=== PATIENT | male | born 1950 | race Caucasian/White ===

== ENCOUNTER → 2019-03-17 | Outpatient (CLI) | payer MEDICARE ==
--- NOTE | 2019-03-17 14:12 | XR ---
EXAMINATION TYPE: XR chest 2V DATE OF EXAM: 03/17/2019 COMPARISON: NONE HISTORY: Cough and shortness of breath for 2 months TECHNIQUE: Frontal and lateral views of the chest are obtained. FINDINGS: There is no focal air space opacity, pleural effusion, or pneumothorax seen. Pulmonary hy perinflation and flattening the diaphragms is seen with biapical lucency representing underlying COPD . There are some 4 mm nodular densities in the right lower lobe, right upper lobe and overlying the l eft hemidiaphragm on the lateral view. The cardiac silhouette size is within normal limits. The oss eous structures are intact. IMPRESSION: 1. No acute cardiac pulmonary process. 2. Radiographic findings of COPD. 3. Three small nodular densities. CT thorax is recommended to assess for pulmonary nodule.
== END | disposition home or self-care (01) ==
LOC: RADXRMAIN 13:23
PROVIDERS: ATTEND Family Medicine
DX: J44.9 Chronic obstructive pulmonary disease, unspecified (principal); J98.4 Other disorders of lung
CPT/HCPCS: 71046

== ENCOUNTER → 2019-04-01 | Outpatient (CLI) | payer MEDICARE, BC ==
[2019-04-01 14:17] LABS: African American GFR (CKD) >90 (>60 ml/min/1.73 sqM); Blood Urea Nitrogen 17 mg/dL (9-20); Non-African American GFR(CKD) 85 (>60 ml/min/1.73 sqM)
--- NOTE | 2019-04-01 15:33 | CT ---
EXAMINATION TYPE: CT chest w con DATE OF EXAM: 04/01/2019 COMPARISON: Chest x-ray March 17, 2019 HISTORY: follow up nodule. Abnormal chest x-ray. CT DLP: 552 mGycm. Automated Exposure Control for Dose Reduction was Utilized. TECHNIQUE: CT scan of the thorax is performed following with IV Contrast, patient injected with 100 mL of Isovue 300. FINDINGS: LUNGS: Background mild to moderate underlying emphysematous change bilaterally. [id number] pare nchymal fibrotic changes in the bases left greater than right with slightly elevated left hemidiaphra gm. It is slightly more thickened posteriorly left lung base. There is nonspecific 6 x 5 mm right bas ilar nodule anteriorly image 53. There is confirmation of 3 mm right upper lobe nodule axial image 20 and 3 mm basilar right lower lobe nodule axial image 59. No pleural effusion or pneumothorax. MEDIASTINUM: There are no greater than 1 cm hilar or mediastinal lymph nodes. No cardiomegaly or pe ricardial effusion is seen. OTHER: Slight S-shaped scoliotic curvature. IMPRESSION: [id number] emphysematous change with scattered parenchymal fibrotic changes and sca ttered small nodules up to 6 x 5 mm. Follow-up advised as per Fleischner Society recommendations.
== END | disposition home or self-care (01) ==
LOC: RADCTMAIN 13:39
PROVIDERS: ATTEND Family Medicine
DX: J43.9 Emphysema, unspecified (principal); R91.1 Solitary pulmonary nodule
CPT/HCPCS: 82565; 84520; 71260; 36415; Q9967

== ENCOUNTER → 2019-11-19 | Outpatient (CLI) | payer MEDICARE ==
--- NOTE | 2019-11-19 09:59 | CT ---
EXAMINATION TYPE: CT chest wo con DATE OF EXAM: 11/19/2019 COMPARISON: CT chest April 01, 2019. HISTORY: pneumoconiosis/asthma CT DLP: 290.4 mGycm. Automated Exposure Control for Dose Reduction was Utilized. TECHNIQUE: CT scan of the thorax is performed without IV contrast. FINDINGS: LUNGS: Background mild to borderline moderate underlying emphysematous change bilaterally is redemons trated. Mild bibasilar left greater than right linear atelectasis and/or scarring improved from prior . There is stable 6 x 5 mm right basilar nodule or nodular opacity anteriorly image 53. There is stab le 3 mm right upper lobe nodule axial image 20, stable 2 a 3 mm peripheral right upper lobe nodule li dangelo imaged 23 and stable 2 to 3 mm posterior basilar right lower lobe nodule axial image 62. No new greater than 4 mm nodules or masses bilaterally. No pleural effusion or pneumothorax seen bilaterally . No new consolidation. MEDIASTINUM: Lack of IV contrast is noted to limit evaluation for mediastinal and especially hilar ad enopathy. There are no definitive greater than 1 cm hilar or mediastinal lymph nodes. No cardiomega ly or pericardial effusion is seen. Coronary artery calcification redemonstrated which is noted coron bobbi artery risk factor. Ascending aorta measures up to 3.7 cm in diameter image 34 unchanged from zulema or. OTHER: S-shaped scoliotic curvature redemonstrated. IMPRESSION: Chronic changes without new acute pulmonary process. No new suspicious or enlarging pulmo nary nodules. Findings strongly favored chronic postinflammatory.
== END | disposition home or self-care (01) ==
LOC: RADCTMAIN 08:54
PROVIDERS: ATTEND Internal Medicine Pulmonary Disease
DX: J44.9 Chronic obstructive pulmonary disease, unspecified (principal); I10 Essential (primary) hypertension
CPT/HCPCS: 71250

== ENCOUNTER 2019-12-29 11:10 | Day surgery (SDC) | payer MEDICARE ==
[2019-12-24 13:40] VITALS: BMI 21.8
[~2019-12-29 11:10] MED LIST: LACTATED RINGERS 1,000 ML IV SCH
[2019-12-29] MEDS ORDERED: LIDOCAINE 1% (10MG/ML) FOR IV START INTRADERMA ONE (11:45)
[2019-12-29 11:49] VITALS: TEMP 97.4
[2019-12-29] MEDS ORDERED: PROPOFOL 10 MG/ML 20 ML VIAL IV ONE (12:22)
--- NOTE | 2019-12-29 12:41 | P.PCN ---
Date of Procedure: 12/29/19 Procedure(s) Performed: BRIEF HISTORY: Patient is a 69-year-old pleasant white male scheduled for an elective colonoscopy as a part of screening for colorectal neoplasia. PROCEDURE PERFORMED: Colonoscopy with snare polypectomy. PREOPERATIVE DIAGNOSIS: Bleeding for colon cancer. IV sedation per Anesthesia. PROCEDURE: After informed consent was obtained, the patient, was brought into the endoscopy unit. IV sedation was administered by Anesthesia under continuous monitoring. Digital rectal examination was normal. Initially the Olympus CF-160 flexible video colonoscope was then inserted in the rectum, gradually advanced into the cecum without any difficulty. Careful examination was performed as the scope was gradually being withdrawn. Ileocecal valve and the appendiceal orifice were visualized and appeared normal. Prep was excellent. Mucosa of the cecum, appeared normal. In the ascending colon there was a 1 cm polyp removed by snare polypectomy. Rest of the ascending colon, transverse colon, descending colon, sigmoid colon, and rectum appeared normal. In the mid rectum there was another 1 cm polyp removed by snare polypectomy. Scattered left-sided diverticulosis seen. Retroflexion was performed in the rectum and no lesions were seen. The patient tolerated the procedure well. IMPRESSION: 1 cm ascending colon polyp status post polypectomy 1 cm mid rectal polyp status post polypectomy Scattered sigmoidal diverticulosis RECOMMENDATIONS: Findings of this examination were discussed with the patientas well as his family. He was advised to follow with the biopsy results. If the biopsy shows an adenoma he can have a repeat colonoscopy in 3-5 years].
[2019-12-29 13:04] VITALS: RESP 18
[2019-12-29 13:14] VITALS: BP 111/75; PULSE 75
--- NOTE | 2019-12-31 10:24 | CDI ---
Date: 12.31.2019 CDS/Labor Relations Representative Name: Franny Meyer Phone: If any questions, call Dot Arora Provider Scribe at [phone] Patient Name: Otf Yeung Admit Date 12.29.19 Discharge Date: 12.29.19 ATTENTION: The [facility] Coding Staff appreciate your assistance in clarifying documentation. Please respond to the clarification below the line at the bottom and electronically sign. The [facility] Coding staff will review the response and follow-up if needed. Please note: Queries are made part of the Legal Health Record. If you have any questions, please contact the Provider Scribe. Dear Dr. Mckeon In order to code to the greatest specificity and for the greatest reimbursement I need the following information: In your Colonoscopy report you have documented the preop dx as bleeding for colon screening. Did the pt have symptom of bleeding or was this a screening colonoscopy. Please specify. Thank you for your kind consideration. Screning for colon cancer. Corrected in EMR Dr.K Mckeon ____ MTDD
== END 2019-12-29 13:20 | disposition home or self-care (01) ==
LOC: ORWHC2ENDO 11:10
PROVIDERS: ATTEND Internal Medicine Gastroenterology
DX: Z12.11 Encounter for screening for malignant neoplasm of colon (principal); K63.5 Polyp of colon; D12.8 Benign neoplasm of rectum; K57.30 Diverticulosis of large intestine without perforation or abscess without bleeding; J45.909 Unspecified asthma, uncomplicated; Z87.891 Personal history of nicotine dependence; Z79.899 Other long term (current) drug therapy
CPT/HCPCS: 88305; 45385; J2704

== ENCOUNTER → 2021-02-21 | Outpatient (CLI) | payer MEDICARE ==
--- NOTE | 2021-02-21 13:50 | XR ---
EXAMINATION TYPE: XR chest 2V DATE OF EXAM: 02/21/2021 COMPARISON: 03/17/2019 HISTORY: 70-year-old male with history of COPD. J45.901 J45.31 J44.9 J64 J43.9 TECHNIQUE: Frontal and lateral views FINDINGS: The cardiomediastinal silhouette, aorta, and pulmonary vasculature are within normal limits. Hyperinf lation. Unchanged hazy density medial right base. No consolidation or pleural effusion. IMPRESSION: Redemonstrated COPD a mild pectus excavatum. No acute process seen.
== END | disposition home or self-care (01) ==
LOC: RADXRMAIN 10:47
PROVIDERS: ATTEND Internal Medicine Pulmonary Disease
DX: J44.9 Chronic obstructive pulmonary disease, unspecified (principal); Q67.6 Pectus excavatum
CPT/HCPCS: 71046

== ENCOUNTER → 2023-04-11 | Outpatient (CLI) | payer MEDICARE ==
--- NOTE | 2023-04-11 12:16 | CT ---
EXAMINATION TYPE: CT chest wo con DATE OF EXAM: 04/11/2023 COMPARISON: 11/19/2019 HISTORY: h/o COPD, f/u no complaints CT DLP: 339.8 mGycm. Automated Exposure Control for Dose Reduction was Utilized. TECHNIQUE: CT scan of the thorax is performed without IV contrast. FINDINGS: There is mild emphysematous changes which are stable. There are multiple sub-6 mm nodules all of which are stable. No new or suspicious lung mass or nodule is seen. There is mild chronic interstitial scarring in the left lung base which is stable. There is no airspace/consolidative density. There is a mucous collection within the trachea otherwise the airway is patent. There is aneurysmal dilatation of ascending thoracic aorta which measures 4.3 cm. It has grown in the interval. Previously it measured approximately 3.7 cm in greatest dimension. There is no mediastinal, hilar or axillary adenopathy. There is scanning through the upper abdomen reveals no gross abnormality. No focal osseous lesions ar e seen. IMPRESSION: 1. Lung RADS category 2 benign findings. Continue routine screening intervals. 2. Enlarging ascending thoracic aortic aneurysm from 3.7-4.3 cm. 3. Stable mild emphysematous changes. 4. No acute cardiopulmonary disease.
== END | disposition home or self-care (01) ==
LOC: RADCTMAIN 07:48
PROVIDERS: ATTEND Internal Medicine Pulmonary Disease
DX: I71.21 Aneurysm of the ascending aorta, without rupture (principal); J44.9 Chronic obstructive pulmonary disease, unspecified; J43.8 Other emphysema; J45.50 Severe persistent asthma, uncomplicated; J64 Unspecified pneumoconiosis; I10 Essential (primary) hypertension
CPT/HCPCS: 71250

== ENCOUNTER → 2024-01-09 | Outpatient (CLI) | payer MEDICARE ==
[2024-01-09 11:15] LABS: African American GFR (CKD) >90 (>60 ml/min/1.73 sqM); Blood Urea Nitrogen 23 mg/dL (9-20); Non-African American GFR(CKD) 80 (>60 ml/min/1.73 sqM)
--- NOTE | 2024-01-09 13:14 | CT ---
EXAMINATION TYPE: CT angio chest CT DLP: 732.20 mGycm, Automated exposure control for dose reduction was used. DATE OF EXAM: 01/09/2024 12:12 PM COMPARISON: CT chest 04/11/2023, 11/19/2019 CLINICAL INDICATION:Male, 73 years old with history of I71.40 AAA ABDOMINAL AORTIC ANEURYSM, WITHOUT RUPT; order was for CTA chest. TECHNIQUE/CONTRAST: Noncontrast imaging of the chest was performed. Followed by CTA scan of the thorax is performed IV co ntrast, patient injected with 100ml mL of Isovue 370. 3D and mip reconstructed images are created on an independent workstation and reviewed.. FINDINGS: Lungs/Pleura: No evidence of focal consolidation, pleural effusion or pneumothorax. Mild paraseptal a nd centrilobular emphysematous changes. Calcified granuloma within the right lower lobe. Bilateral lo wer lobe dependent subsegmental atelectasis. Stable sub-6 mm pulmonary nodules redemonstrated. No new or enlarging pulmonary nodules. Airway: Large airways are patent. Heart: Heart is within normal limits for size.. No pericardial effusion. Mild coronary arterial calci fications. Vasculature: Mild atherosclerotic calcification of the aorta and its branches. 3 vessel conventional aortic arch. No evidence for intramural hematoma or aortic dissection. Stable aneurysmal dilatation o f the ascending thoracic aorta measuring up to 4.1 cm. The aortic root measures up to 3.6 cm. The marlys cending thoracic aorta and the aortic arch measures up to 3.5 cm. The descending thoracic aorta at th e GE junction measures up to 3.5 cm. Infrarenal fusiform abdominal aortic aneurysm measuring up to 3. 7 cm. Eccentric mural thrombus identified within the descending thoracic aorta at the GE junction ext ending into the abdominal aorta. Mediastinum: Stable enlarged right hilar 1.4 cm lymph node. Musculoskeletal: No acute osseous abnormalities Soft Tissues: Unremarkable. Lower neck: No significant findings. Upper Abdomen: Small hiatal hernia. Subcentimeter hypodensity within the peripheral right hepatic lob e which is too small to characterize. IMPRESSION: 1. Stable size of ascending thoracic aortic aneurysm measuring up to 4.1 cm. Stable aneurysmal dilat ation of the descending thoracic aorta at the GE junction measuring up to 3.5 cm. Infrarenal fusiform abdominal aortic aneurysm identified measuring up to 3.7 cm. 2. Nonspecific stable enlarged right pulmonary hilar lymph node. [facility], , 01/09/2024 1:12 PM
== END | disposition home or self-care (01) ==
LOC: RADCTMAIN 10:11
PROVIDERS: ATTEND Internal Medicine Interventional Cardiology
DX: I71.40 Abdominal aortic aneurysm, without rupture, unspecified
CPT/HCPCS: 36415; 71275; 82565; 84520

== ENCOUNTER 2024-04-02 12:08 | Emergency (ER) | payer MEDICARE ==
[2024-04-02 12:16] VITALS: RESP 18
--- NOTE | 2024-04-02 12:31 | ED ---
Wound/Laceration HPI - General Chief Complaint: Wound/Laceration Stated Complaint: Left finger injury Time Seen by Provider: 04/02/24 12:19 Source: patient, RN notes reviewed Mode of arrival: ambulatory Limitations: no limitations - History of Present Illness Initial Comments: Since 73-year-old male presents emergency Serbian complaint of laceration to his left hand index finger. Patient states he cut his finger with a table saw his tetanus up-to-date within the last 5 years. He states he had a laceration from the fingertip to the mid finger. - Related Data Home Medications Medication Instructions Recorded Confirmed Albuterol Sulfate [Proair 1 puff PO DIRECTED PRN 12/24/19 12/29/19 Respiclick] Previous Rx's Medication Instructions Recorded Cephalexin [Keflex] 500 mg PO Q6HR #40 cap 04/02/24 Allergies Allergy/AdvReac Type Severity Reaction Status Date / Time No Known Allergies Allergy Verified 12/29/19 11:30 Review of Systems ROS Statement: Those systems with pertinent positive or pertinent negative responses have been documented in the HPI. ROS Other: All systems not noted in ROS Statement are negative. Past Medical History Past Medical History: COPD, Hypertension Additional Past Medical History / Comment(s): Hypertension controlled with diet changes. History of Any Multi-Drug Resistant Organisms: None Reported Past Surgical History: No Surgical Hx Reported Additional Past Surgical History / Comment(s): Dental Work. Past Anesthesia/Blood Transfusion Reactions: No Reported Reaction Past Psychological History: No Psychological Hx Reported Smoking Status: Former smoker Past Alcohol Use History: None Reported Past Drug Use History: None Reported - Past Family History Father Family Medical History: Cancer General Exam Limitations: no limitations General appearance: alert, in no apparent distress Head exam: Present: atraumatic, normocephalic, normal inspection Respiratory exam: Present: normal lung sounds bilaterally. Absent: respiratory distress, wheezes, rales, rhonchi, stridor Cardiovascular Exam: Present: regular rate, normal rhythm, normal heart sounds. Absent: systolic murmur, diastolic murmur, rubs, gallop, clicks Extremities exam: Present: other (Finger there is a 3 cm laceration extending from distal tip to the nail on the dorsal aspect) Neurological exam: Present: alert Skin exam: Present: warm, dry, intact, normal color. Absent: rash Course Vital Signs 04/02/24 04/02/24 12:10 13:48 Temperature 97.4 F L 97.9 F Pulse Rate 88 81 Respiratory 18 18 Rate Blood Pressure 127/73 124/86 O2 Sat by Pulse 96 97 Oximetry Procedures - Laceration Laceration #1 Consent Obtained: verbal consent Indication: laceration Site: hand (Finger) Size (cm): 3 Description: stellate, avulsion, irregular Depth: simple, single layer Anesthetic Used: lidocaine 1%, without epi Anesthesia Technique: local infiltration Amount (mls): 3 Pre-repair: wound explored, irrigated extensively Type of Sutures: nylon Size of Sutures: 4-0 Number of Sutures: 6 Technique: simple, interrupted Patient Tolerated Procedure: well, no complications Medical Decision Making - Medical Decision Making Was pt. sent in by a medical professional or institution (, PA, PHONE TECHNICIAN, urgent care, hospital, or [facility]...) When possible be specific @ -No Did you speak to anyone other than the patient for history (EMS, parent, family, police, friend...)? What history was obtained from this source @ -No Did you review nursing and triage notes (agree or disagree)? Why? @ -I reviewed and agree with nursing and triage notes Were old charts reviewed (outside hosp., previous admission, EMS record, old EKG, old radiological studies, urgent care reports/EKG's, [facility] records)? Report findings @ -No old charts were reviewed Differential Diagnosis (chest pain, altered mental status, abdominal pain women, abdominal pain men, vaginal bleeding, weakness, fever, dyspnea, syncope, headache, dizziness, GI bleed, back pain, seizure, CVA, palpatations, mental health, musculoskeletal)? @ -[Finger fracture laceration EKG interpreted by me (3pts min.). @ -None X-rays interpreted by me (1pt min.). @ -X-ray left index finger showing fracture no foreign bodies CT interpreted by me (1pt min.). @ -[None done U/S interpreted by me (1pt. min.). @ -None done What testing was considered but not performed or refused? (CT, X-rays, U/S, labs)? Why? @ -None What meds were considered but not given or refused? Why? @ -None Did you discuss the management of the patient with other professionals (professionals i.e. , PA, PHONE TECHNICIAN, lab, RT, psych nurse, social science analyst, hebrew cantor, teacher, humane officer, employment case manager)? Give summary @ -No Was smoking cessation discussed for >3mins.? @ -No Was critical care preformed (if so, how long)? @ -No Were there social determinants of health that impacted care today? How? (Homelessness, low income, unemployed, alcoholism, drug addiction, transporta tion, low edu. Level, literacy, decrease access to med. care, assisted, rehab)? @ -No Was there de-escalation of care discussed even if they declined (Discuss DNR or withdrawal of care, Hospice)? DNR status @ -No What co-morbidities impacted this encounter? (DM, HTN, Smoking, COPD, CAD, Cancer, CVA, ARF, Chemo, Hep., AIDS, mental health diagnosis, sleep apnea, morbid obesity)? @ -None Was patient admitted / discharged? Hospital course, mention meds given and route, prescriptions, significant lab abnormalities, going to OR and other pertinent info. @ -Discharge patient presented for finger injury, laceration. Patient was given Ancef tetanus is updated., Patient's wound was thoroughly clean, approximated discharged on oral antibiotics and will follow-up with hand surgery Undiagnosed new problem with uncertain prognosis? @ -No Drug Therapy requiring intensive monitoring for toxicity (Heparin, Nitro, Insulin, Cardizem)? @ -No Were any procedures done? @ -Wound approximation, sutures Diagnosis/symptom? @ -Finger laceration, fracture open Acute, or Chronic, or Acute on Chronic? @ -Acute Uncomplicated (without systemic symptoms) or Complicated (systemic symptoms)? @ -Complicated Side effects of treatment? @ -No Exacerbation, Progression, or Severe Exacerbation? @ -No Poses a threat to life or bodily function? How? (Chest pain, [place], [place], pneumonia, PE, COPD, DKA, ARF, appy, cholecystitis, CVA, Diverticulitis, Homicidal, Suicidal, threat to staff... and all critical care pts) @ -No Disposition Clinical Impression: Open finger fracture, Finger laceration Disposition: HOME SELF-CARE Condition: Stable Instructions (If sedation given, give patient instructions): Care For Your Stitches (ED), Finger Laceration (ED) Additional Instructions: Please return to the Emergency Department if symptoms worsen or any other concerns. Prescriptions: Cephalexin [Keflex] 500 mg PO Q6HR #40 cap Is patient prescribed a controlled substance at d/c from ED?: No Referrals: James Painting MD [Primary Care Provider] - 1-2 days Gini Perla DO [Doctor of Osteopathic Medicine] - 1-2 days Time of Disposition: 13:27
[2024-04-02] MEDS: ceFAZolin 1,000 MG VIAL (IM USE) IM STA (12:36)
[2024-04-02] MEDS: LIDOCAINE 1% INJ 10MG/ML (20 ML MDV) SQ ONE (12:36)
--- NOTE | 2024-04-02 12:52 | XR ---
EXAMINATION TYPE: XR finger LT DATE OF EXAM: 04/02/2024 12:45 PM COMPARISON: None. CLINICAL INDICATION: Male, 73 years old with history of laceration saw, pain TECHNIQUE: XR finger LT views are submitted. FINDINGS: Comminuted fracture distal phalanx left second digit with intra-articular extension. Displacement est imated at 1.3 mm. No radiopaque foreign body within soft tissues. IMPRESSION: Comminuted fracture as discussed [facility], , 04/02/2024 12:50 PM
[2024-04-02] MEDS: BACITRACIN OINT 1 EACH PACKET TOPICAL ONE (13:38)
[2024-04-02 13:51] VITALS: BP 124/86; PULSE 81; TEMP 97.9
== END 2024-04-02 13:51 | disposition home or self-care (01) ==
LOC: EC 12:08
DX: S62.601B Fracture of unspecified phalanx of left index finger, initial encounter for open fracture (principal); Z87.891 Personal history of nicotine dependence; W27.0XXA Contact with workbench tool, initial encounter
CPT/HCPCS: 73140; 12002; 96372; 99283; J0690; J2003

== ENCOUNTER → 2024-04-13 | Outpatient (CLI) | payer MEDICARE ==
--- NOTE | 2024-04-13 10:47 | CT ---
EXAMINATION TYPE: CT angio chest CT DLP: 721.3 mGycm, Automated exposure control for dose reduction was used. DATE OF EXAM: 04/13/2024 10:35 AM COMPARISON: CT chest 01/09/2024, CT chest , 11/19/2019, 04/01/2019 CLINICAL INDICATION:Male, 73 years old with history of I71.20 THORACIC AORTIC AN; Thoracic aneurysm TECHNIQUE/CONTRAST: CTA scan of the thorax is performed without and with IV Contrast, patient injected with 100 mL of Iso quincy 300. 3D reconstructed images are created on an independent workstation and reviewed.. FINDINGS: Lungs/Pleura: No evidence of focal consolidation, pleural effusion or pneumothorax. Mild paraseptal a nd centrilobular emphysematous changes. Calcified granuloma within the right lower lobe. Bilateral lo wer lobe dependent subsegmental atelectasis. Stable sub-6 mm pulmonary nodules redemonstrated. No new or enlarging pulmonary nodules. Airway: Large airways are patent. Heart: Heart is within normal limits for size. No pericardial effusion. Mild coronary arterial calcif ications. Vasculature: Mild atherosclerotic calcification of the aorta and its branches. 3 vessel conventional aortic arch. No evidence for intramural hematoma or aortic dissection. Stable aneurysmal dilatation o f the ascending thoracic aorta measuring up to 4.0 cm. The aortic root measures up to 3.6 cm. The marlys cending thoracic aorta at the aortic arch measures up to 3.7 cm. The descending thoracic aorta at the GE junction measures up to 3.6 cm. Infrarenal fusiform abdominal aortic aneurysm measuring up to 3.7 cm. Eccentric mural thrombus identified within the descending thoracic aorta at the GE junction exte nding into the abdominal aorta. Mediastinum: Stable enlarged right hilar 1.5 cm lymph node. Musculoskeletal: No acute osseous abnormalities Soft Tissues: Unremarkable. Lower neck: No significant findings. Upper Abdomen: Small hiatal hernia. Stable subcentimeter hypodensity within the peripheral right hepa tic lobe which is too small to characterize. Distal colonic diverticulosis. IMPRESSION: 1. Stable size of ascending thoracic aortic aneurysm measuring up to 4.0 cm. Stable aneurysmal dilat ation of the descending thoracic aorta at the GE junction measuring up to 3.7 cm. Stable infrarenal f usiform abdominal aortic aneurysm identified measuring up to 3.7 cm. No evidence for intramural hemat kylee or dissection. 2. Nonspecific stable enlarged right pulmonary hilar lymph node. [facility], , 04/13/2024 10:45 AM
== END | disposition home or self-care (01) ==
LOC: RADCTMAIN 10:01
PROVIDERS: ATTEND Thoracic Surgery (Cardiothoracic Vascular Surgery)
DX: I71.21 Aneurysm of the ascending aorta, without rupture (principal)
CPT/HCPCS: 71275; Q9967